=== PATIENT | male | born 1965 | race Caucasian/White ===

== ENCOUNTER 2018-03-15 13:16 | Day surgery (SDC) | payer MEDICAID ==
[2018-03-15] MEDS ORDERED: FENTANYL PF 100MCG/2ML VIAL IV ONE (13:17)
[2018-03-15] MEDS ORDERED: PROPOFOL 10 MG/ML VIAL IV ONE (13:17)
[2018-03-15] MEDS ORDERED: LIDOCAINE 2% MDV (20MG/ML) 20ML VIAL IV ONE (13:17)
[2018-03-15] MEDS ORDERED: ONDANSETRON HCL IV 4 MG/2 ML VIAL IVP ONE (13:17)
--- NOTE | 2018-03-20 12:40 | Operative Note ---
DATE OF SURGERY: SURGEON: Jacob Darling MD OPERATION: 1. ESOPHAGOGASTRODUODENOSCOPY. 2. COLONOSCOPY. INDICATIONS: This is a 52-year-old male with history of unexplained weight loss with persistent nausea and intermittent vomiting who presented for esophagogastroduodenoscopy and colonoscopy. POSTOPERATIVE DIAGNOSIS: Normal upper and lower endoscope with no neoplastic or ulcerative lesions. ANESTHESIA: Sedation is per Anesthesia. Pulse oximetry was monitored throughout the procedure to maintain O2 saturation of 90% or greater. Supplemental oxygen was administered via nasal cannula. Cardiac and vital signs were monitored throughout the duration of the procedure, and they were stable. The procedures of esophagogastroduodenoscopy and colonoscopy and risks and benefits of the procedure, including the risk of bleeding and perforation, among others, were explained to the patient who voiced understanding and agreed to have the procedures done. Physical examination was performed, and the patient was found stable for sedation. PROCEDURE: The patient was placed in the left lateral position. Sedation was initiated. A plastic bite block was inserted into the oral cavity. The Olympus [id number] gastroscope was introduced into the oral cavity and advanced to the proximal esophagus without difficulty. The esophageal mucosa was carefully examined upon introduction of the gastroscope. The proximal and mid and distal esophageal mucosa appeared normal. The gastroscope was then advanced into the stomach, and surveillance of the stomach revealed normal gastric fundus, body, and antrum but no ulcers or any erythema noted. The gastroscope was then advanced to the descending duodenum without difficulty. The duodenal bulb and descending duodenum appeared normal. The gastroscope was then withdrawn into the stomach and retroflexion was performed. There were no other lesions noted. The gastroscope was then straightened and withdrawn while carefully examining the gastric and esophageal mucosa. No other lesions noted. Multiple duodenal biopsies were obtained to rule out celiac disease. The gastroscope was then withdrawn and the procedure was terminated. The patient tolerated procedure well without any immediate complications. He remained with stable vital signs and was repositioned for colonoscopy. A digital rectal exam was performed and showed some mild external hemorrhoids with no palpable rectal masses. An Olympus PCF-180AL colonoscope was then inserted into the rectum under direct visualization. It was advanced to the cecum without difficulty. The ileocecal valve and appendiceal orifice were identified and photographed. The colonic mucosa was carefully examined upon introduction of the colonoscope. There were no lesions noted. The ileocecal valve was intubated and the terminal ileal mucosa was inspected for about 10 cm and it appeared normal. The colonoscope was then withdrawn while carefully examining the colonic mucosal surfaces. The cecum, ascending colon, descending colon, transverse colon, and sigmoid colon mucosa appeared normal. Random colon biopsies were obtained to rule out microscopic colitis. In the rectum, retroflexion was performed and grade 1 internal hemorrhoids were noted. The colonoscope was then withdrawn and the procedure was terminated. The patient tolerated the procedure well without any immediate complications. The patient remained with stable vital signs and was transferred to the recovery room. RECOMMENDATIONS: 1. We will follow up on the biopsies. 2. The patient is to have a repeat colonoscopy for screening in 10 years. Thank you for allowing me to participate in the care of your patient. CC: MD MELANY Ndiaye
== END 2018-03-15 15:15 | disposition home or self-care (01) ==
LOC: HOP 13:16
PROVIDERS: ATTEND Internal Medicine Gastroenterology
DX: R63.4 Abnormal weight loss (principal); R11.2 Nausea with vomiting, unspecified; E11.9 Type 2 diabetes mellitus without complications; I10 Essential (primary) hypertension; E78.00 Pure hypercholesterolemia, unspecified
CPT/HCPCS: 45380; 43239; 00813; J2405; J3010

== ENCOUNTER 2019-01-15 11:30 | Emergency (ER) | payer MEDICAID ==
[2019-01-15] MEDS ORDERED: 0.9 % SODIUM CHLORIDE 1,000 ML BAG IV ONE ×2 (12:32→13:14)
[2019-01-15] MEDS ORDERED: ONDANSETRON HCL IV 4 MG/2 ML VIAL IV ONE (12:32)
--- NOTE | 2019-01-15 12:38 | Emergency Department Record ---
History of Present Illness - General Chief complaint: Vomiting Stated complaint: VOMITING X3 DAYS/WEAKNESS Time Seen by Provider: 01/15/19 12:13 Source: Patient Mode of Arrival: Ambulatory Limitations: No limitations - History of Present Illness Initial comments: The patient is here due to a 3 day hx of frequent nausea, and vomiting. He has vomited 3-4 times a day for the last 3 days. The patient denies any AP, back pain, diarrhea, fever, chills, or any previous abdominal surgeries. He did have an EGD and Colonoscopy 10 months ago that was neg. MD complaint: Nausea, Vomiting Onset/Timin -: Days(s) - Related Data Previous Rx's Medication Instructions Recorded Ondansetron [Zofran Odt] 4 mg SL .Q4-6H PRN #12 tab.rapdis 01/15/19 Allergies Allergy/AdvReac Type Severity Reaction Status Date / Time amoxicillin Allergy HIVES Unverified 01/08/19 19:36 cannabidiol (CBD) extract Allergy Unverified 01/08/19 19:36 codeine Allergy ALTERED Unverified 01/08/19 19:36 MENTAL STATUS felodipine Allergy SWELLING Unverified 01/08/19 19:36 (GENERAL) Sulfa (Sulfonamide Allergy HIVES Unverified 01/08/19 19:36 Antibiotics) Review of Systems Constitutional: Denies: Chills, Fever Eyes: Denies: Eye discharge ENT: Denies: Congestion Respiratory: Denies: Cough Cardiovascular: Denies: Arrhythmia, Chest pain, Palpitations Endocrine: Denies: Fatigue Gastrointestinal: Reports: Nausea, Vomiting. Denies: Constipation, Diarrhea Genitourinary: Denies: Dysuria Musculoskeletal: Denies: Arthralgia Skin: Denies: Bruising Past Medical History - SOCIAL HISTORY Smoking Status: Former smoker - RESPIRATORY Hx Respiratory Disorders: Yes Hx Asthma: No Hx Bronchitis: No Hx COPD: No Hx Pneumonia: Yes (at age 24) Hx Pulmonary Embolism: No Hx Tuberculosis: No - CARDIOVASCULAR Hx Cardio Disorders: Yes Hx Abnormal EKG: No Hx Cardiac Cath: No Hx Chest Pain: No Hx CHF: No Hx Edema: Yes (generalized) Hx Hypertension: Yes Hx Irregular Heartbeat: No Hx Palpitations: No Hx Pacemaker/Defib: No Hx Coronary Artery Disease: No Hx Coronary Stent: No - NEURO Hx Neuro Disorders: Yes Hx CVA: No Hx Dizziness: No Hx Headaches: No Hx of Migraines: No Hx Neuropathy: No Hx Seizures: No Hx Weakness: Yes (lost wt and now weaker) - GI Hx GI Disorders: Yes Hx Abdominal Pain: No Hx Reflux: No Hx Hepatitis/Jaundice: No Hx Irritable Bowel: No Hx Liver Disease: No Hx Nausea/Vomiting: Yes Hx Obstructive Bowel: Yes (possible) Hx Pancreatitis: No Hx Rectal Bleeding: No Hx Wt Loss/Wt Gain: Yes Hx Cirrhosis: No - Hx Genitourinary Disorders: No - ENDOCRINE Hx Endocrine Disorders: Yes Hx Diabetes: Yes - MUSCULOSKELETAL Hx Musculoskeletal Disorders: Yes Comment:: muscle weakness especially legs - PSYCH Hx Psych Problems: Yes Hx Depression: Yes (cant work leads to depression) - HEMATOLOGY/ONCOLOGY Hx Hematology/Oncology Disorders: No Hx Anemia: No Hx Blood Disorders: No Hx Bruising: No Hx Cancer: No Hx Chemotherapy: No Hx Radiation Therapy: No Hx Clotting Problems: No Hx Blood Transfusions: No Hx Blood Transfusion Reaction: No Family Medical History Family Hx Comment (NOT TO BE USED IN PLACE OF ITEMS BELOW): Father diabetic, heart problem. Mother diabetic, stroke. Cancer in extended. Physical Exam - General General Appearance: Alert, Oriented x3, Cooperative, No acute distress - Head Head exam: Atraumatic, Normocephalic, Normal inspection - Eye Eye exam: Normal appearance, PERRL - ENT Throat exam: Normal inspection. negative: Tonsillar erythema, Tonsillar exudate - Neck Neck exam: Normal inspection, Full ROM. negative: Tenderness - Respiratory Respiratory exam: Normal lung sounds bilaterally. negative: Respiratory distress - Cardiovascular Cardiovascular Exam: Regular rate, Normal rhythm, Normal heart sounds - GI/Abdominal GI/Abdominal exam: Soft, Normal bowel sounds. negative: Rebound, Rigid, Tenderness - Extremities Extremities exam: Normal inspection, Full ROM, Normal capillary refill. negative: Tenderness - Neurological Neurological exam: Alert, Normal gait, Oriented X3. negative: Abnormal gait, Altered, Motor sensory deficit - Skin Skin exam: negative: Rash Course - Reevaluation(s) Reevaluation #1: The patient is doing better at this time. His temp is normal and he denies any nausea, AP, vomiting, or diarrhea. He is drinking water normally and has urinated here in the ER. I did discuss the elevated Cr level and also the liver enzymes and the need for recheck tomorrow. The patient did receive 2 liters of IVF and now is drinking water with no vomiting so I do feel he is stable for discharge. 01/15/19 14:18 Reevaluation #2: The patient is doing better at this time. He denies any pain or discomfort and is drinking normally. On exam his abdomen is soft and nontender in all 4 quads. I did discuss the CT results and the need to see his PCP for f/u on the findings. 01/15/19 14:55 Medical Decision Making - Data Complexity MDM Data: Labs Ordered and/or Reviewed, X-Ray Ordered and/or Reviewed - Lab Data Result diagrams: 01/15/19 12:05 01/15/19 12:05 - Radiology Data Radiology results: Report reviewed (CT: Hazziness of mesenteric and perinephric fat, etiology ?. Fatty liver. Multiple incidental findings.) Disposition Disposition: Discharge Clinical Impression: Vomiting Qualifiers: Vomiting type: unspecified Vomiting Intractability: non-intractable Nausea presence: with nausea Qualified Code(s): R11.2 - Nausea with vomiting, unspecified Disposition: Home, Self-Care Condition: (2) Stable Instructions: Acute Nausea and Vomiting (ED) Additional Instructions: Please drink plenty of fluids and use the Zofran for nausea. Please return to the ER at 10am tomorrow for recheck. Please make an appointment with your doctor for next week to go over the CT results. Prescriptions: Ondansetron [Zofran Odt] 4 mg SL .Q4-6H PRN #12 tab.rapdis PRN Reason: Nausea Forms: Patient Portal Access Time of Disposition: 14:59 Quality - Quality Measures Quality Measures: N/A - Blood Pressure Screening View Details: Yes Does Patient Have Any of the Following: No Blood Pressure Classification: Pre-Hypertensive BP Reading Systolic Measurement: 152 Diastolic Measurement: 87 Screening for High Blood Pressure: < Pre-Hypertensive BP, F/U Documented > [G8950] Pre-Hypertensive Follow-up Interventions: Referral to alternative/primary care provider.
[2019-01-15 12:48] LABS: ABSOLUTE NEUTROPHIL COUNT 3.88; BASO % 0.8 % (0-6); GRAN % 64.6 % (47-80); HEMATOCRIT 38.7 % (42.0-52.0); HEMOGLOBIN 13.1 gm/dl (14.0-18.0); LYMPH % 26.6 % (16-45); MEAN CELL VOLUME 91.3 fl (81-97); MEAN CORPUSCULAR HGB CONC 33.9 g/dl (32-36); MEAN PLATELET VOLUME 9.7 fl (7.4-10.4); PLATELET COUNT 278 K/uL (130-400); RED BLOOD COUNT 4.24 M/uL (4.40-5.70); RED CELL DISTRIBUTION WIDTH 12.7 % (11.5-14.5)
[2019-01-15 12:49] LABS: MEAN CORPUSCULAR HEMOGLOBIN 30.8 pg (27-33)
[2019-01-15] MEDS ORDERED: ACETAMINOPHEN 1,000 MG/100 ML BTL IVPB ONE (12:59)
[2019-01-15 13:00] LABS: BLOOD UREA NITROGEN 17 mg/dL (6-20); CREATININE 1.5 mg/dL (0.7-1.2); EST GLOMERULAR FILTRATION RATE 52 mL/min; LIPASE 76 U/L (13-60); TOTAL PROTEIN 7.2 g/dL (6.6-8.7)
[2019-01-15 13:02] LABS: GLUCOSE,RANDOM 166 mg/dL (74-109)
[2019-01-15 13:05] LABS: ALBUMIN 4.2 g/dL (4.0-5.0); ALKALINE PHOSPHATASE 71 U/L (40-129); ALT/SGPT 54 U/L (<41); AST/SGOT 115 U/L (10.0-50.0)
[2019-01-15 13:07] LABS: BILIRUBIN,DIRECT < 0.2 mg/dL (0-0.3)
[2019-01-15 14:00] LABS: URINE APPEARANCE CLEAR; URINE BILIRUBIN NEGATIVE (NEGATIVE); URINE BLOOD TRACE-I (NEGATIVE); URINE COLOR YELLOW; URINE GLUCOSE (UA) NEGATIVE (NEGATIVE); URINE KETONE NEGATIVE (NEGATIVE); URINE LEUKOCYTE ESTERASE NEGATIVE (NEGATIVE); URINE NITRITE NEGATIVE (NEGATIVE); URINE UROBILINOGEN 0.2 E.U./dL (0.20 - 1.00)
[2019-01-15 14:07] LABS: URINE EPITHELIAL CELLS NONE SEEN (FEW); URINE RBC 0 - 2 (NONE SEEN); URINE WBC NONE SEEN (0-2/hpf)
--- NOTE | 2019-01-15 14:47 | CT SCAN REPORT ---
EXAMINATION: CT Abdomen and Pelvis without IV Contrast EXAM DATE: 01/15/2019 2:07 PM TECHNIQUE: Standard protocol CT imaging of the abdomen and pelvis was performed without intravenous c ontrast. INDICATION: AP with vomiting. COMPARISON: None ENCOUNTER: Not applicable CT ABDOMEN AND PELVIS FINDINGS: Lung Bases: Minimal bibasilar atelectasis/scarring. Hepatobiliary: Liver is smooth in contour and demonstrates diffuse decreased density compatible with steatosis. There is focal fatty sparing adjacent to the gallbladder fossa. There is cholelithiasis wi thin the dependent gallbladder. No intrahepatic or extrahepatic biliary ductal dilation. Pancreas: The pancreas is normal. Spleen: The spleen is not enlarged. Adrenals: The adrenal glands are normal. Gastrointestinal: The stomach and small bowel are normal with no obstruction or inflammation. No abno rmal small bowel dilation. The appendix appears normal. The large bowel is within normal limits. Reproductive Organs: Unremarkable Lymphatic System: There are a few mildly enlarged prominent periportal lymph nodes. Vasculature: Normal caliber abdominal aorta Peritoneum: No lymphadenopathy or abnormal fluid collections. There is mild haziness of the mesenteri c fat. Retroperitoneum: There is mild haziness of the bilateral retroperitoneal fat. Assessment of the solid organs, soft tissues, and vascular structures is overall limited on noncontra st imaging, IMPRESSION: 1. Mild haziness of the mesenteric and bilateral perirenal fat may be due to chronic changes, however an inflammatory process such as an ascending urinary tract infection, panniculitis, enteritis or mes enteritis could also have this appearance. Correlation with urinalysis recommended. 2. Diffuse hepatic steatosis. 3. Poorly defined sclerotic area within the right femoral neck is indeterminate in etiology. This cou ld represent a bone island or enchondroma, however further evaluation with MRI is recommended to excl ude other etiologies. 4. Cholelithiasis. Dictated by: Marcel Jay on 01/15/2019 2:25 PM. .
== END 2019-01-15 15:08 | disposition home or self-care (01) ==
LOC: ER 11:30
DX: R11.2 Nausea with vomiting, unspecified (principal); R53.1 Weakness; R94.5 Abnormal results of liver function studies; R94.4 Abnormal results of kidney function studies; K80.20 Calculus of gallbladder without cholecystitis without obstruction; K76.0 Fatty (change of) liver, not elsewhere classified; I10 Essential (primary) hypertension; Z87.891 Personal history of nicotine dependence
CPT/HCPCS: 99284 ×2; 96365; 96375; 96361; 83690; 85025; 80076; 80048; 81001; 74176; J2405; J7030

== ENCOUNTER 2019-01-16 09:48 | Emergency (ER) | payer MEDICAID ==
--- NOTE | 2019-01-16 09:59 | Emergency Department Record ---
History of Present Illness - General Chief Complaint: Recheck - Other Stated Complaint: RECHECK FOR 01/15 VOMITING Time Seen by Provider: 01/16/19 09:50 Source: Patient Mode of arrival: Ambulatory Limitations: No limitations - History of Present Illness Initial Comments: The patient is here for recheck due to a 4 day hx of nausea and vomiting. He was seen in the ER yesterday and had mild renal insuffiency along with a mildly elevate Lipase. The patient also had an abdominal CT performed that did not demonstrate any acute process. Since discharge he has been drinking normally with no abdominal pain. He did have one episode of vomiting but denies any pain, dysuria, diarrhea, or fever. He does state he has been urinating normally. MD Complaint: Other Onset/Timin -: Days(s) Symptoms Since Prior Visit: No new symptoms - Related Data Previous Rx's Medication Instructions Recorded Ondansetron [Zofran Odt] 4 mg SL .Q4-6H PRN #12 tab.rapdis 01/15/19 Allergies Allergy/AdvReac Type Severity Reaction Status Date / Time amoxicillin Allergy HIVES Verified 01/16/19 09:57 cannabidiol (CBD) extract Allergy HYPERSENSIT Verified 01/16/19 09:57 IVITY codeine Allergy ALTERED Verified 01/16/19 09:57 MENTAL STATUS felodipine Allergy SWELLING Verified 01/16/19 09:57 (GENERAL) Sulfa (Sulfonamide Allergy HIVES Verified 01/16/19 09:57 Antibiotics) Travel Screening - Travel/Exposure Within Last 30 Days Have you traveled within the last 30 days?: No - Travel/Exposure Within Last Year Have you traveled outside the [place] in the last year?: No - Additonal Travel Details Have you been exposed to anyone with a communicable illness?: No - Travel Symptoms Symptom Screening: None Review of Systems Constitutional: Denies: Chills, Fever Eyes: Denies: Eye discharge ENT: Denies: Congestion Respiratory: Denies: Cough Cardiovascular: Denies: Arrhythmia Past Medical History - SOCIAL HISTORY Smoking Status: Former smoker Alcohol Use: None Drug Use: None - RESPIRATORY Hx Respiratory Disorders: Yes Hx Asthma: No Hx Bronchitis: No Hx COPD: No Hx Pneumonia: Yes (at age 24) Hx Pulmonary Embolism: No Hx Tuberculosis: No - CARDIOVASCULAR Hx Cardio Disorders: Yes Hx Abnormal EKG: No Hx Cardiac Cath: No Hx Chest Pain: No Hx CHF: No Hx Edema: Yes (generalized) Hx Hypertension: Yes Hx Irregular Heartbeat: No Hx Palpitations: No Hx Pacemaker/Defib: No Hx Coronary Artery Disease: No Hx Coronary Stent: No - NEURO Hx Neuro Disorders: Yes Hx CVA: No Hx Dizziness: No Hx Headaches: No Hx of Migraines: No Hx Neuropathy: No Hx Seizures: No Hx Weakness: Yes (lost wt and now weaker) - GI Hx GI Disorders: Yes Hx Abdominal Pain: No Hx Reflux: No Hx Hepatitis/Jaundice: No Hx Irritable Bowel: No Hx Liver Disease: No Hx Nausea/Vomiting: Yes Hx Obstructive Bowel: Yes (possible) Hx Pancreatitis: No Hx Rectal Bleeding: No Hx Wt Loss/Wt Gain: Yes Hx Cirrhosis: No - Hx Genitourinary Disorders: No - ENDOCRINE Hx Endocrine Disorders: Yes Hx Diabetes: Yes - MUSCULOSKELETAL Hx Musculoskeletal Disorders: Yes Comment:: muscle weakness especially legs - PSYCH Hx Psych Problems: Yes Hx Depression: Yes (cant work leads to depression) - HEMATOLOGY/ONCOLOGY Hx Hematology/Oncology Disorders: No Hx Anemia: No Hx Blood Disorders: No Hx Bruising: No Hx Cancer: No Hx Chemotherapy: No Hx Radiation Therapy: No Hx Clotting Problems: No Hx Blood Transfusions: No Hx Blood Transfusion Reaction: No Family Medical History Any Significant Family History?: No Family Hx Comment (NOT TO BE USED IN PLACE OF ITEMS BELOW): Father diabetic, heart problem. Mother diabetic, stroke. Cancer in extended. Physical Exam - General General Appearance: Alert, Oriented x3, Cooperative, No acute distress - Head Head exam: Atraumatic, Normocephalic - Eye Eye exam: Normal appearance, PERRL - ENT Throat exam: Normal inspection. negative: Tonsillar erythema, Tonsillar exudate - Neck Neck exam: Normal inspection, Full ROM. negative: Tenderness - Respiratory Respiratory exam: Normal lung sounds bilaterally. negative: Respiratory distress - Cardiovascular Cardiovascular Exam: Regular rate, Normal rhythm, Normal heart sounds - GI/Abdominal GI/Abdominal exam: Soft, Normal bowel sounds. negative: Guarding, Pulsatile mass, Rebound, Rigid, Tenderness (The abdomen is very soft.) - Extremities Extremities exam: Normal inspection, Full ROM, Normal capillary refill. negative: Tenderness - Back Back exam: Reports: Normal inspection - Neurological Neurological exam: Alert, Normal gait, Oriented X3. negative: Abnormal gait, Altered, Motor sensory deficit - Skin Skin exam: negative: Rash Course Vital Signs 01/16/19 09:49 Temperature 98.8 F Pulse Rate 89 Respiratory 20 Rate Blood Pressure 166/93 Pulse Ox 96 - Reevaluation(s) Reevaluation #1: The patient is doing a lot better at this time. He denies any pain and she has been drinking water without difficulty. The patient had been taking Levaquin and Clindamycin last week until the vomiting started. He was taking it due to a toe infection which is now doing a lot better. I did instruct the patient to restart the Levaquin and to see his PCP next week for recheck and to recheck his liver enzymes that are mildly elevated. 01/16/19 10:30 Medical Decision Making - Data Complexity MDM Data: Labs Ordered and/or Reviewed - Lab Data Result diagrams: 01/16/19 10:00 01/16/19 10:00 Disposition Disposition: Discharge Clinical Impression: Vomiting Qualifiers: Vomiting type: unspecified Vomiting Intractability: non-intractable Nausea p resence: with nausea Qualified Code(s): R11.2 - Nausea with vomiting, unspecified Disposition: Home, Self-Care Condition: (2) Stable Instructions: Acute Nausea and Vomiting (ED) Additional Instructions: Please continue the Zofran for nausea and drink plenty of fluids. Please see your family doctor next week for recheck of the toe and the vomiting and to have your liver enzymes redrawn. Return to the ER for any worsening symptoms. Forms: Patient Portal Access Time of Disposition: 10:33 Quality - Quality Measures Quality Measures: N/A - Blood Pressure Screening View Details: Yes Does Patient Have Any of the Following: Active Dx of HTN Blood Pressure Classification: Hypertensive Reading Systolic Measurement: 166 Diastolic Measurement: 93 Screening for High Blood Pressure: Patient Exclusion, Hx of HTN [G9744]
[2019-01-16 10:05] LABS: ABSOLUTE NEUTROPHIL COUNT 2.94; BASO % 0.7 % (0-6); EOS % 0.2 % (0-6); GRAN % 65.4 % (47-80); HEMOGLOBIN 12.5 gm/dl (14.0-18.0); LYMPH % 24.4 % (16-45); MEAN CELL VOLUME 89.3 fl (81-97); MEAN CORPUSCULAR HGB CONC 34.7 g/dl (32-36); MEAN PLATELET VOLUME 8.4 fl (7.4-10.4); MONO % 9.3 % (0-9); PLATELET COUNT 213 K/uL (130-400); RED BLOOD COUNT 4.03 M/uL (4.40-5.70); RED CELL DISTRIBUTION WIDTH 12.4 % (11.5-14.5); WHITE BLOOD COUNT W/O DIFF 4.5 K/uL (4.2-12.2)
[2019-01-16 10:15] LABS: BLOOD UREA NITROGEN 15 mg/dL (6-20); CREATININE 1.2 mg/dL (0.7-1.2); EST GLOMERULAR FILTRATION RATE > 60 mL/min
[2019-01-16 10:16] LABS: LIPASE 44 U/L (13-60); TOTAL PROTEIN 6.8 g/dL (6.6-8.7)
[2019-01-16 10:18] LABS: GLUCOSE,RANDOM 140 mg/dL (74-109)
[2019-01-16 10:20] LABS: ALT/SGPT 49 U/L (<41)
[2019-01-16 10:21] LABS: ALB/GLOB RATIO 1.4 (1.1-1.8); ALKALINE PHOSPHATASE 64 U/L (40-129); AST/SGOT 103 U/L (10.0-50.0)
== END 2019-01-16 10:44 | disposition home or self-care (01) ==
LOC: ER 09:48
DX: R11.2 Nausea with vomiting, unspecified (principal); I10 Essential (primary) hypertension
CPT/HCPCS: 80053; 83690; 85025; 99283